=== PATIENT | female | born 1950 | race African-American/Black ===

== ENCOUNTER → 2017-05-23 | Outpatient (CLI) | payer MEDICARE, MEDICAID ==
[~2017-05-23] MED LIST: ACET-2178 PO; ALBU2.5V13 NEB; AMLO2.5T45 PO; ASPI-1159 PO; ATOR40TA70 PO; DOCU-150 PO; FAMO20TA8 PO; FERR-63 PO; GUAI-735 PO; LOV40 SQ; METO50TA5 PO; RANO10003 PO
== END | disposition home or self-care (01) ==
LOC: MRI 09:41
PROVIDERS: ATTEND Internal Medicine Critical Care Medicine
DX: M17.11 Unilateral primary osteoarthritis, right knee (principal); M25.461 Effusion, right knee; M23.241 Derangement of anterior horn of lateral meniscus due to old tear or injury, right knee; M22.41 Chondromalacia patellae, right knee; R60.0 Localized edema
CPT/HCPCS: 73721

== ENCOUNTER 2018-06-23 13:11 | Inpatient (IN) | payer MEDICARE, MEDICAID ==
[~2018-06-23] VITALS: Ht 139.7 cm; Wt 111.7 kg
[~2018-06-23 13:11] MED LIST changes: +METO-539 PO; -METO50TA5 PO
[2018-06-23 19:04] LABS: BASOPHILS % 0.7 % (0.0-2.0); EOSINOPHILS % 2.9 % (0.0-5.0); HEMATOCRIT. 30.5 % (36.0-48.0); HEMOGLOBIN. 9.6 g/dL (12.0-16.0); LYMPHOCYTES % 22.1 % (20.0-50.0); MEAN CORPUSCULAR HEMOGLOBIN 27.2 pg (28.0-32.0); MEAN PLATELET VOLUME 9.4 fl (7.4-10.4); MONOCYTES % 7.7 % (2.0-8.0); NEUTROPHILS % 66.6 % (40.0-76.0); PLATELET 99 x1000/uL (130-400); RED BLOOD CELL COUNT 3.54 mill/uL (4.2-5.4); RED CELL DISTRIBUTION WIDTH 16.6 % (11.6-14.6)
[2018-06-23 19:11] LABS: CHLORIDE 104 mEq/L (98-107)
[2018-06-23 20:40] LABS: CLARITY URINE CLEAR (CLEAR); COLOR URINE YELLOW (YELLOW); KETONES URINE TRACE (NEGATIVE); LEUKOCYTE ESTERASE URINE NEGATIVE (NEGATIVE); NITRITE URINE NEGATIVE (NEGATIVE); OCCULT BLOOD URINE NEGATIVE (NEGATIVE); PH URINE 5.5 (4.5-8.0); PROTEIN URINE NEGATIVE (NEGATIVE); SPECIFIC GRAVITY URINE 1.031 (1.005-1.030); UROBILINOGEN URINE 0.2 E.U./dL (0.2-1.0)
[2018-06-23] MEDS ORDERED: ASPIRIN 81MG TABLET PO ONE (20:45)
[2018-06-23 20:52] LABS: *AMPHETAMINES SCREEN URINE NEGATIVE (NEGATIVE); *BARBITURATES SCREEN URINE NEGATIVE (NEGATIVE); *BENZODIAZEPINES SCREEN URINE NEGATIVE (NEGATIVE)
[2018-06-23 20:53] LABS: *COCAINE SCREEN URINE NEGATIVE (NEGATIVE); CANNABINOID URINE SCREEN NEGATIVE (NEGATIVE); METHADONE URINE SCREEN NEGATIVE (NEGATIVE); OPIATES URINE SCREEN NEGATIVE (NEGATIVE); PHENCYCLIDINE URINE SCREEN NEGATIVE (NEGATIVE)
[2018-06-23 23:30] VITALS: BP 134/104
[2018-06-23 23:38] VITALS: BP 134/104
[2018-06-24] VITALS (12 sets, daily range): BP systolic 106–160; BP diastolic 33–85
[2018-06-24] MEDS ORDERED: ALBUTEROL (0.083%) 2.5MG/3ML NEB ONE (00:21)
[2018-06-24] MEDS ORDERED: ENOXAPARIN 120MG/0.8ML SYR SUBCUT SCH (01:00)
[2018-06-24] MEDS ORDERED: ONDANSETRON HCL 4MG/2ML INJ IV PRN (02:45)
[2018-06-24] MEDS ORDERED: DIPHENHYDRAMINE 50MG/ML VIAL IV PRN (02:45)
[2018-06-24] MEDS ORDERED: DOCUSATE SODIUM 100MG CAPSULE PO PRN (02:45)
[2018-06-24] MEDS ORDERED: CLONIDINE 0.1MG TABLET PO PRN (02:45)
[2018-06-24] MEDS ORDERED: NA PHOS,M-B/NA PHOS,DI-BA ENEMA 118ML PR PRN (02:45)
[2018-06-24] MEDS ORDERED: IPRATROPIUM/ALBUTEROL 0.5-3(2.5)MG/3ML NEB INH PRN (02:45)
[2018-06-24] MEDS ORDERED: ACETAMINOPHEN 650MG/20.3ML UDC GT PRN (02:45)
[2018-06-24] MEDS ORDERED: HYDROCODONE/ACETAMINOPHEN 5/325MG TABLET PO PRN (02:45)
[2018-06-24] MEDS ORDERED: ACETAMINOPHEN 325MG TABLET PO PRN ×2 (02:45)
[2018-06-24] MEDS ORDERED: MAGNESIUM/ALUMINUM HYDROXIDE/SIMETHICONE 30ML UDC PO PRN (02:45)
[2018-06-24] MEDS ORDERED: ACETAMINOPHEN 650MG SUPP PR PRN (02:45)
[2018-06-24] MEDS ORDERED: GUAIFENESIN 200MG/10ML SUGAR FREE UDC PO PRN (02:45)
[2018-06-24] MEDS ORDERED: ALBUTEROL (0.083%) 2.5MG/3ML NEB HHN SCH (04:00)
[2018-06-24] MEDS: SODIUM CHLORIDE 0.9% INJ 3ML FLUSH IVF SCH ×3 (06:00→21:36)
[2018-06-24] MEDS: ENOXAPARIN 40MG/0.4ML SYR SUBCUT SCH ×2 (08:35→21:35)
[2018-06-24 11:39] LABS: EOSINOPHILS % 3.2 % (0.0-5.0); HEMATOCRIT. 30.8 % (36.0-48.0); HEMOGLOBIN. 9.7 g/dL (12.0-16.0); LYMPHOCYTES % 21.3 % (20.0-50.0); MEAN CORPUSCULAR HEMOGLOBIN 27.5 pg (28.0-32.0); MEAN CORPUSCULAR VOLUME 87.3 fL (81.0-99.0); MEAN PLATELET VOLUME 9.7 fl (7.4-10.4); MONOCYTES % 8.6 % (2.0-8.0); NEUTROPHILS % 65.9 % (40.0-76.0); PLATELET 97 x1000/uL (130-400); RED BLOOD CELL COUNT 3.53 mill/uL (4.2-5.4); RED CELL DISTRIBUTION WIDTH 16.5 % (11.6-14.6)
[2018-06-24 12:43] LABS: CREATINE KINASE MB FRACTION 3.7 ng/mL (0.5-3.6)
[2018-06-24 12:44] LABS: CHLORIDE 104 mEq/L (98-107)
[2018-06-24] MEDS: METHYLPREDNISOLONE SOD SUCC 40 MG/ML VIAL IV SCH ×2 (14:03→21:35)
[2018-06-24] MEDS ORDERED: FUROSEMIDE 20MG/2ML VIAL IVP SCH (14:15)
[2018-06-24] MEDS: POTASSIUM CHLORIDE 20MEQ TABLET SR PO SCH (14:19)
[2018-06-24] MEDS: BUDESONIDE 0.5MG/2ML NEB HHN SCH (21:03)
[2018-06-24] MEDS: IPRATROPIUM/ALBUTEROL 0.5-3(2.5)MG/3ML NEB HHN SCH (21:03)
[2018-06-24 23:21] LABS: CREATINE KINASE MB FRACTION 3.2 ng/mL (0.5-3.6)
[2018-06-25] VITALS (12 sets, daily range): BP systolic 123–169; BP diastolic 41–86
[2018-06-25] MEDS: IPRATROPIUM/ALBUTEROL 0.5-3(2.5)MG/3ML NEB HHN SCH ×6 (00:33→19:57)
[2018-06-25] MEDS: METHYLPREDNISOLONE SOD SUCC 40 MG/ML VIAL IV SCH ×2 (05:43→13:00)
[2018-06-25] MEDS: SODIUM CHLORIDE 0.9% INJ 3ML FLUSH IVF SCH ×3 (05:43→21:33)
[2018-06-25] MEDS: POTASSIUM CHLORIDE 20MEQ TABLET SR PO SCH (08:04)
[2018-06-25] MEDS: ENOXAPARIN 40MG/0.4ML SYR SUBCUT SCH ×2 (08:05→21:31)
[2018-06-25] MEDS: BUDESONIDE 0.5MG/2ML NEB HHN SCH ×2 (08:26→19:57)
[2018-06-25] MEDS ORDERED: FUROSEMIDE 20MG/2ML VIAL IVP SCH (09:00)
[2018-06-25] MEDS: ASPIRIN 81MG EC TABLET PO SCH (13:00)
[2018-06-25 15:05] LABS: BASOPHILS % 0.4 % (0.0-2.0); EOSINOPHILS % 0.1 % (0.0-5.0); HEMATOCRIT. 33.1 % (36.0-48.0); HEMOGLOBIN. 10.4 g/dL (12.0-16.0); LYMPHOCYTES % 12.1 % (20.0-50.0); MEAN CORPUSCULAR HEMOGLOBIN 27.6 pg (28.0-32.0); MEAN CORPUSCULAR VOLUME 87.4 fL (81.0-99.0); MEAN PLATELET VOLUME 9.7 fl (7.4-10.4); MONOCYTES % 7.4 % (2.0-8.0); PLATELET 113 x1000/uL (130-400); RED BLOOD CELL COUNT 3.79 mill/uL (4.2-5.4); RED CELL DISTRIBUTION WIDTH 16.2 % (11.6-14.6)
[2018-06-25 15:07] LABS: CHLORIDE 102 mEq/L (98-107)
[2018-06-25 15:15] LABS: HDL CHOLESTEROL 59 mg/dL (40-59)
[2018-06-25 15:19] LABS: CREATINE KINASE MB FRACTION 3.1 ng/mL (0.5-3.6)
[2018-06-25 15:32] LABS: LDL CHOLESTEROL 304 mg/dL (5-100)
[2018-06-25] MEDS: PREDNISONE 20MG TABLET PO SCH (18:23)
[2018-06-25] MEDS: AMLODIPINE 2.5MG TABLET PO SCH (21:32)
[2018-06-25] MEDS: RANOLAZINE 500 MG TAB.SR.12H PO SCH (21:32)
[2018-06-25] MEDS: ATORVASTATIN CALCIUM 40MG TABLET PO SCH (21:32)
[2018-06-25] MEDS: METOPROLOL TARTRATE 25MG TABLET PO SCH (21:33)
[2018-06-26] VITALS (12 sets, daily range): BP systolic 115–144; BP diastolic 48–76
[2018-06-26] MEDS: IPRATROPIUM/ALBUTEROL 0.5-3(2.5)MG/3ML NEB HHN SCH ×6 (04:30→21:22)
[2018-06-26] MEDS: SODIUM CHLORIDE 0.9% INJ 3ML FLUSH IVF SCH ×3 (06:00→22:00)
[2018-06-26 07:18] LABS: BASOPHILS % 0.1 % (0.0-2.0); HEMATOCRIT. 30.6 % (36.0-48.0); HEMOGLOBIN. 9.8 g/dL (12.0-16.0); LYMPHOCYTES % 12.8 % (20.0-50.0); MEAN CORPUSCULAR HEMOGLOBIN 27.6 pg (28.0-32.0); MEAN PLATELET VOLUME 9.8 fl (7.4-10.4); MONOCYTES % 11.8 % (2.0-8.0); NEUTROPHILS % 75.3 % (40.0-76.0); PLATELET 107 x1000/uL (130-400); RED BLOOD CELL COUNT 3.55 mill/uL (4.2-5.4); RED CELL DISTRIBUTION WIDTH 15.7 % (11.6-14.6)
[2018-06-26 07:41] LABS: CHLORIDE 101 mEq/L (98-107)
[2018-06-26] MEDS: PREDNISONE 20MG TABLET PO SCH ×2 (08:23→17:00)
[2018-06-26] MEDS: RANOLAZINE 500 MG TAB.SR.12H PO SCH ×2 (08:24→21:14)
[2018-06-26] MEDS: POTASSIUM CHLORIDE 20MEQ TABLET SR PO SCH ×2 (08:24→09:00)
[2018-06-26] MEDS: ASPIRIN 81MG EC TABLET PO SCH (08:25)
[2018-06-26] MEDS: METOPROLOL TARTRATE 25MG TABLET PO SCH ×2 (08:32→21:15)
[2018-06-26] MEDS: AMLODIPINE 2.5MG TABLET PO SCH (08:32)
[2018-06-26] MEDS: ENOXAPARIN 40MG/0.4ML SYR SUBCUT SCH ×2 (08:33→21:17)
[2018-06-26] MEDS: BUDESONIDE 0.5MG/2ML NEB HHN SCH (08:57)
[2018-06-26] MEDS ORDERED: FUROSEMIDE 40MG/4ML VIAL IVP SCH (09:00)
[2018-06-26] MEDS ORDERED: FURO-151 MT (10:25)
[2018-06-26] MEDS ORDERED: P50 PO (10:25)
[2018-06-26] MEDS ORDERED: LEVOFLOXACIN 500MG TABLET PO NR (10:30)
[2018-06-26] MEDS ORDERED: FUROSEMIDE 40MG TABLET PO NR (10:30)
[2018-06-26] MEDS ORDERED: LEVO500T2 PO (10:33)
[2018-06-26] MEDS ORDERED: SODIUM POLYSTYRENE SULFONATE 15 G/60 ML BOT PO NR (10:45)
[2018-06-26] MEDS ORDERED: BUDESONIDE 0.5MG/2ML NEB HHN SCH (14:00)
[2018-06-26 15:53] LABS: BG BASE EXCESS 0.2 mmol/L (-2.0-2.0); BG CARBOXYHEMOGLOBIN 0.7 % (0.5-1.5); BG DEOXYHEMOGLOBIN 4.2 % (0.0-5.0); BG FRACTION INSPIRED OXYGEN 21; BG HCO3 ACT 24.7 mmol/L (22.0-26.0); BG METHEMOGLOBIN 0.2 % (0.0-1.5); BG OXYGEN SATURATION 95.8 % (92.0-98.5); BG OXYHEMOGLOBIN 94.9 % (94.0-97.0); BG PCO2 39.5 mmHg (35.0-45.0); BG PH 7.414 (7.350-7.450); BG PO2 82.6 mmHg (75.0-100.0); BG SAMPLE SITE RIGHT RADIAL; BG TOTAL HEMOGLOBIN 11.4 g/dL (12.0-18.0); BG VENT MODE ROOM AIR
[2018-06-26 18:21] LABS: INR 1.1; PROTHROMBIN TIME 10.7 sec (9.1-11.1)
[2018-06-26] MEDS: ATORVASTATIN CALCIUM 40MG TABLET PO SCH (21:14)
[2018-06-26] MEDS: FUROSEMIDE 20MG TABLET PO SCH (21:16)
[2018-06-26] MEDS: AMLODIPINE 5MG TABLET PO SCH (21:16)
[2018-06-27] VITALS (14 sets, daily range): BP systolic 116–159; BP diastolic 49–88
[2018-06-27] MEDS: IPRATROPIUM/ALBUTEROL 0.5-3(2.5)MG/3ML NEB HHN SCH ×5 (01:02→16:40)
[2018-06-27] MEDS: SODIUM CHLORIDE 0.9% INJ 3ML FLUSH IVF SCH ×2 (06:00→14:00)
[2018-06-27 07:45] LABS: BASOPHILS % 0.2 % (0.0-2.0); HEMATOCRIT. 29.7 % (36.0-48.0); HEMOGLOBIN. 9.6 g/dL (12.0-16.0); LYMPHOCYTES % 13.5 % (20.0-50.0); MEAN CORPUSCULAR VOLUME 86.2 fL (81.0-99.0); MEAN PLATELET VOLUME 9.9 fl (7.4-10.4); MONOCYTES % 10.6 % (2.0-8.0); NEUTROPHILS % 75.7 % (40.0-76.0); PLATELET 113 x1000/uL (130-400); RED BLOOD CELL COUNT 3.45 mill/uL (4.2-5.4); RED CELL DISTRIBUTION WIDTH 15.9 % (11.6-14.6)
[2018-06-27] MEDS: RANOLAZINE 500 MG TAB.SR.12H PO SCH (08:35)
[2018-06-27] MEDS: AMLODIPINE 5MG TABLET PO SCH (08:35)
[2018-06-27] MEDS: ASPIRIN 81MG EC TABLET PO SCH (08:35)
[2018-06-27] MEDS: FUROSEMIDE 20MG TABLET PO SCH (08:35)
[2018-06-27] MEDS: PREDNISONE 20MG TABLET PO SCH ×2 (08:35→17:07)
[2018-06-27] MEDS: ENOXAPARIN 40MG/0.4ML SYR SUBCUT SCH (08:36)
[2018-06-27] MEDS: METOPROLOL TARTRATE 25MG TABLET PO SCH (08:36)
[2018-06-27 09:15] LABS: CHLORIDE 101 mEq/L (98-107)
[2018-06-27] MEDS ORDERED: ENOXAPARIN 30MG/0.3ML SYR SUBCUT SCH (21:00)
== END 2018-06-27 20:45 | DRG 291 ==
LOC: ER 17:34 → EDBEDREQ 19:07 → 3WST 20:28 → EDBEDREQTM 20:31 → EDBEDREQ 20:33 → ENRESERV 21:37
PROVIDERS: ADMIT Family Medicine; ATTEND Family Medicine
PROC: 06H033Z Insertion of Infusion Device into Inferior Vena Cava, Percutaneous Approach (ICD-10-PCS; principal; 2018-06-24)
PROC: B549ZZA Ultrasonography of Inferior Vena Cava, Guidance (ICD-10-PCS; 2018-06-24)
DX: I11.0 Hypertensive heart disease with heart failure (principal); J96.20 Acute and chronic respiratory failure, unspecified whether with hypoxia or hypercapnia; Z68.44 Body mass index [BMI] 60.0-69.9, adult; I69.954 Hemiplegia and hemiparesis following unspecified cerebrovascular disease affecting left non-dominant side; I50.23 Acute on chronic systolic (congestive) heart failure; K21.9 Gastro-esophageal reflux disease without esophagitis; D63.8 Anemia in other chronic diseases classified elsewhere; E66.9 Obesity, unspecified; Z95.1 Presence of aortocoronary bypass graft; Z95.2 Presence of prosthetic heart valve
CPT/HCPCS: 36415; 36569; 36600; 71045; 76937; 80048; 80061; 80305; 82375; 82550; 82553; 82805; 83735; 83880; 84132; 84484; 87077; 87186; 93005; 93306; 94640; 97116; 97162; 99285; C1725; C1893; J1650; J1940; J2920; J7512; J7611; J7620; J7626

== ENCOUNTER 2018-09-28 21:29 | Inpatient (IN) | payer MEDICARE, MEDICAID ==
[~2018-09-28] VITALS: Ht 152.4 cm; Wt 109.3 kg
[~2018-09-28 21:29] MED LIST changes: -FERR-63 PO; +FURO-151 MT; -GUAI-735 PO; +LEVO500T2 PO; -LOV40 SQ; +P50 PO
[2018-09-28] MEDS ORDERED: ALBUTEROL (0.083%) 2.5MG/3ML NEB HHN STA (22:12)
[2018-09-28] MEDS ORDERED: MORPHINE SULFATE 4 MG/ML CPJ (NOT FOR IM USE) IV ONE (23:30)
[2018-09-28 23:49] LABS: BASOPHILS % 0.5 % (0.0-2.0); EOSINOPHILS % 2.6 % (0.0-5.0); HEMATOCRIT. 25.8 % (36.0-48.0); HEMOGLOBIN. 8.3 g/dL (12.0-16.0); LYMPHOCYTES % 16.5 % (20.0-50.0); MEAN CORPUSCULAR HEMOGLOBIN 29.7 pg (28.0-32.0); MEAN CORPUSCULAR VOLUME 92.8 fL (81.0-99.0); MEAN PLATELET VOLUME 9.4 fl (7.4-10.4); NEUTROPHILS % 74.4 % (40.0-76.0); PLATELET 137 x1000/uL (130-400); RED BLOOD CELL COUNT 2.78 mill/uL (4.2-5.4)
[2018-09-28 23:54] LABS: CHLORIDE 99 mEq/L (98-107)
[2018-09-29] VITALS (11 sets, daily range): BP systolic 102–132; BP diastolic 58–77
[2018-09-29 00:04] LABS: PROTHROMBIN TIME 10.5 sec (9.1-11.1)
[2018-09-29] MEDS ORDERED: NITROGLYCERIN 0.4MG TABLET SL SL ONE (01:00)
[2018-09-29] MEDS ORDERED: ASPIRIN 81MG TABLET PO ONE (01:00)
[2018-09-29 01:54] LABS: CLARITY URINE TURBID (CLEAR); COLOR URINE DARK YELLOW (YELLOW); KETONES URINE TRACE (NEGATIVE); LEUKOCYTE ESTERASE URINE 1+ (NEGATIVE); NITRITE URINE NEGATIVE (NEGATIVE); OCCULT BLOOD URINE NEGATIVE (NEGATIVE); PH URINE 5.5 (4.5-8.0); PROTEIN URINE TRACE (NEGATIVE); SPECIFIC GRAVITY URINE 1.024 (1.005-1.030)
[2018-09-29] MEDS ORDERED: FUROSEMIDE 40MG/4ML VIAL IVP ONE (02:30)
[2018-09-29] MEDS ORDERED: ACETAMINOPHEN 325MG TABLET PO PRN (08:45)
[2018-09-29] MEDS ORDERED: PANTOPRAZOLE 40MG DR TABLET PO NR (08:45)
[2018-09-29] MEDS ORDERED: CLONIDINE 0.1MG TABLET PO PRN (08:45)
[2018-09-29] MEDS ORDERED: ONDANSETRON HCL 4MG/2ML INJ IV PRN (08:45)
[2018-09-29] MEDS ORDERED: METOPROLOL TARTRATE 50MG TABLET PO SCH (09:00)
[2018-09-29] MEDS: AMLODIPINE 2.5MG TABLET PO SCH (09:28)
[2018-09-29] MEDS ORDERED: FUROSEMIDE 40MG/4ML VIAL IVP NR (10:00)
[2018-09-29] MEDS ORDERED: METHYLPREDNISOLONE SOD SUCC 125 MG/2 ML VIAL IV NR (10:00)
[2018-09-29] MEDS: ENOXAPARIN 40MG/0.4ML SYR SUBCUT SCH (10:05)
[2018-09-29] MEDS: POTASSIUM CHLORIDE 10MEQ TABLET SR PO SCH (10:24)
[2018-09-29] MEDS: LEVOFLOXACIN 500MG PREMIX 100 ML IV SCH (10:25)
[2018-09-29 11:29] LABS: BASOPHILS % 0.5 % (0.0-2.0); EOSINOPHILS % 4.6 % (0.0-5.0); HEMATOCRIT. 23.5 % (36.0-48.0); HEMOGLOBIN. 7.5 g/dL (12.0-16.0); LYMPHOCYTES % 17.3 % (20.0-50.0); MEAN CORPUSCULAR HEMOGLOBIN 29.4 pg (28.0-32.0); MEAN CORPUSCULAR VOLUME 92.1 fL (81.0-99.0); MEAN PLATELET VOLUME 9.2 fl (7.4-10.4); MONOCYTES % 8.5 % (2.0-8.0); NEUTROPHILS % 69.1 % (40.0-76.0); PLATELET 112 x1000/uL (130-400); RED BLOOD CELL COUNT 2.55 mill/uL (4.2-5.4); RED CELL DISTRIBUTION WIDTH 14.8 % (11.6-14.6)
[2018-09-29 11:32] LABS: CHLORIDE 101 mEq/L (98-107)
[2018-09-29 11:46] LABS: TOTAL IRON BINDING CAPACITY 168 ug/dL (250-450)
[2018-09-29] MEDS ORDERED: POTASSIUM CHLORIDE 20MEQ TABLET SR PO NR (12:30)
[2018-09-29] MEDS: IPRATROPIUM/ALBUTEROL 0.5-3(2.5)MG/3ML NEB HHN SCH ×3 (13:31→20:35)
[2018-09-29 14:03] LABS: *AMPHETAMINES SCREEN URINE NEGATIVE (NEGATIVE); *BARBITURATES SCREEN URINE NEGATIVE (NEGATIVE); *BENZODIAZEPINES SCREEN URINE NEGATIVE (NEGATIVE); *COCAINE SCREEN URINE NEGATIVE (NEGATIVE); METHADONE URINE SCREEN NEGATIVE (NEGATIVE); OPIATES URINE SCREEN PRESUMTIVE POSITIVE (NEGATIVE)
[2018-09-29 14:04] LABS: CANNABINOID URINE SCREEN NEGATIVE (NEGATIVE); PHENCYCLIDINE URINE SCREEN NEGATIVE (NEGATIVE)
[2018-09-29] MEDS: METHYLPREDNISOLONE SOD SUCC 40 MG/ML VIAL IV SCH (17:31)
[2018-09-29] MEDS: MONTELUKAST SODIUM 10MG TABLET PO SCH (17:32)
[2018-09-29] MEDS: ATORVASTATIN CALCIUM 40MG TABLET PO SCH (17:32)
[2018-09-30] VITALS (16 sets, daily range): BP systolic 90–133; BP diastolic 46–96
[2018-09-30] MEDS: IPRATROPIUM/ALBUTEROL 0.5-3(2.5)MG/3ML NEB HHN SCH ×5 (01:54→18:00)
[2018-09-30] MEDS: METHYLPREDNISOLONE SOD SUCC 40 MG/ML VIAL IV SCH ×2 (02:06→17:24)
[2018-09-30 05:58] LABS: BASOPHILS % 0.5 % (0.0-2.0); HEMATOCRIT. 23.9 % (36.0-48.0); HEMOGLOBIN. 7.5 g/dL (12.0-16.0); LYMPHOCYTES % 8.8 % (20.0-50.0); MEAN CORPUSCULAR HEMOGLOBIN 29.3 pg (28.0-32.0); MEAN CORPUSCULAR VOLUME 93.2 fL (81.0-99.0); MEAN PLATELET VOLUME 9.7 fl (7.4-10.4); MONOCYTES % 2.8 % (2.0-8.0); NEUTROPHILS % 87.9 % (40.0-76.0); PLATELET 132 x1000/uL (130-400); RED BLOOD CELL COUNT 2.57 mill/uL (4.2-5.4); RED CELL DISTRIBUTION WIDTH 15.1 % (11.6-14.6)
[2018-09-30] MEDS: PANTOPRAZOLE 40MG DR TABLET PO SCH (06:07)
[2018-09-30 06:12] LABS: CHLORIDE 102 mEq/L (98-107)
[2018-09-30] MEDS: ENOXAPARIN 40MG/0.4ML SYR SUBCUT SCH (09:00)
[2018-09-30] MEDS: POTASSIUM CHLORIDE 10MEQ TABLET SR PO SCH (09:02)
[2018-09-30] MEDS: AMLODIPINE 2.5MG TABLET PO SCH (09:02)
[2018-09-30] MEDS: FUROSEMIDE 40MG/4ML VIAL IVP SCH (09:02)
[2018-09-30] MEDS: NITROGLYCERIN 0.4MG TABLET SL SL PRN ×3 (09:04→22:40)
[2018-09-30] MEDS ORDERED: CLOPIDOGREL 75MG TABLET PO NR (09:45)
[2018-09-30 09:48] LABS: BG BASE EXCESS 1.3 mmol/L (-2.0-2.0); BG CARBOXYHEMOGLOBIN 0.7 % (0.5-1.5); BG FRACTION INSPIRED OXYGEN 21; BG HCO3 ACT 24.9 mmol/L (22.0-26.0); BG METHEMOGLOBIN 0.6 % (0.0-1.5); BG OXYHEMOGLOBIN 96.7 % (94.0-97.0); BG PCO2 34.4 mmHg (35.0-45.0); BG PH 7.477 (7.350-7.450); BG PO2 105.3 mmHg (75.0-100.0); BG SAMPLE SITE RIGHT RADIAL; BG TOTAL HEMOGLOBIN 7.2 g/dL (12.0-18.0); BG VENT MODE ROOM AIR
[2018-09-30] MEDS: LEVOFLOXACIN 500MG PREMIX 100 ML IV SCH (10:32)
[2018-09-30] MEDS: DOCUSATE SODIUM SUGAR FREE 100MG/10ML UDC NG SCH ×2 (10:45→17:24)
[2018-09-30] MEDS: ATORVASTATIN CALCIUM 40MG TABLET PO SCH (17:24)
[2018-09-30] MEDS: MONTELUKAST SODIUM 10MG TABLET PO SCH (17:24)
[2018-09-30 20:26] LABS: HEMATOCRIT 28.2 % (36.0-48.0); HEMOGLOBIN 8.8 g/dL (12.0-16.0)
[2018-10-01] VITALS (12 sets, daily range): BP systolic 102–152; BP diastolic 46–87
[2018-10-01] MEDS: IPRATROPIUM/ALBUTEROL 0.5-3(2.5)MG/3ML NEB HHN SCH ×6 (00:55→20:51)
[2018-10-01] MEDS: NITROGLYCERIN 0.4MG TABLET SL SL PRN ×2 (02:42→02:46)
[2018-10-01] MEDS: METHYLPREDNISOLONE SOD SUCC 40 MG/ML VIAL IV SCH (06:40)
[2018-10-01] MEDS: PANTOPRAZOLE 40MG DR TABLET PO SCH (06:40)
[2018-10-01 07:46] LABS: HEMATOCRIT. 29.1 % (36.0-48.0); MEAN CORPUSCULAR HEMOGLOBIN 29.5 pg (28.0-32.0); MEAN CORPUSCULAR VOLUME 95.1 fL (81.0-99.0); MEAN PLATELET VOLUME 10.2 fl (7.4-10.4); PLATELET 132 x1000/uL (130-400); RED BLOOD CELL COUNT 3.06 mill/uL (4.2-5.4); RED CELL DISTRIBUTION WIDTH 15.3 % (11.6-14.6)
[2018-10-01] MEDS: DOCUSATE SODIUM SUGAR FREE 100MG/10ML UDC NG SCH ×3 (09:00→17:45)
[2018-10-01] MEDS: FUROSEMIDE 40MG/4ML VIAL IVP SCH (09:16)
[2018-10-01] MEDS: AMLODIPINE 2.5MG TABLET PO SCH ×2 (09:17→21:35)
[2018-10-01] MEDS: POTASSIUM CHLORIDE 10MEQ TABLET SR PO SCH (09:17)
[2018-10-01] MEDS: ENOXAPARIN 40MG/0.4ML SYR SUBCUT SCH (09:17)
[2018-10-01] MEDS: CLOPIDOGREL 75MG TABLET PO SCH (09:17)
[2018-10-01] MEDS: LEVOFLOXACIN 500MG PREMIX 100 ML IV SCH (09:18)
[2018-10-01 09:51] LABS: NUCLEATED RED BLOOD CELLS 1 /100 WBC; PLATELET ESTIMATE NORMAL
[2018-10-01 11:01] LABS: CHLORIDE 101 mEq/L (98-107)
[2018-10-01] MEDS: ISOSORBIDE MONONITRATE 30MG TABLET SR 24HR PO SCH (12:13)
[2018-10-01] MEDS: ATORVASTATIN CALCIUM 40MG TABLET PO SCH (17:45)
[2018-10-01] MEDS: MONTELUKAST SODIUM 10MG TABLET PO SCH (17:45)
[2018-10-02] VITALS (15 sets, daily range): BP systolic 103–138; BP diastolic 46–87
[2018-10-02] MEDS: IPRATROPIUM/ALBUTEROL 0.5-3(2.5)MG/3ML NEB HHN SCH ×6 (00:38→20:19)
[2018-10-02 06:12] LABS: HEMATOCRIT. 26.7 % (36.0-48.0); HEMOGLOBIN. 8.4 g/dL (12.0-16.0); MEAN CORPUSCULAR HEMOGLOBIN 29.4 pg (28.0-32.0); MEAN CORPUSCULAR VOLUME 93.1 fL (81.0-99.0); MEAN PLATELET VOLUME 9.5 fl (7.4-10.4); PLATELET 157 x1000/uL (130-400); RED BLOOD CELL COUNT 2.87 mill/uL (4.2-5.4); RED CELL DISTRIBUTION WIDTH 15.3 % (11.6-14.6)
[2018-10-02 06:42] LABS: CHLORIDE 102 mEq/L (98-107)
[2018-10-02] MEDS: CLOPIDOGREL 75MG TABLET PO SCH (08:52)
[2018-10-02] MEDS: FUROSEMIDE 40MG/4ML VIAL IVP SCH (08:55)
[2018-10-02] MEDS: POTASSIUM CHLORIDE 10MEQ TABLET SR PO SCH (08:55)
[2018-10-02] MEDS: PANTOPRAZOLE 40MG DR TABLET PO SCH (08:55)
[2018-10-02] MEDS: DOCUSATE SODIUM SUGAR FREE 100MG/10ML UDC NG SCH (09:00)
[2018-10-02] MEDS: ISOSORBIDE MONONITRATE 30MG TABLET SR 24HR PO SCH (09:00)
[2018-10-02] MEDS: AMLODIPINE 2.5MG TABLET PO SCH ×2 (09:00→21:53)
[2018-10-02] MEDS ORDERED: PREDNISONE 20MG TABLET PO SCH (09:00)
[2018-10-02] MEDS: LEVOFLOXACIN 500MG PREMIX 100 ML IV SCH (09:10)
[2018-10-02] MEDS: ENOXAPARIN 40MG/0.4ML SYR SUBCUT SCH (12:11)
[2018-10-02 18:13] LABS: NUCLEATED RED BLOOD CELLS 1 /100 WBC; PLATELET ESTIMATE NORMAL
[2018-10-02] MEDS: MONTELUKAST SODIUM 10MG TABLET PO SCH (18:13)
[2018-10-02] MEDS: RANOLAZINE 500 MG TAB.SR.12H PO SCH (21:50)
[2018-10-02] MEDS: ATORVASTATIN CALCIUM 40MG TABLET PO SCH (21:50)
[2018-10-03] VITALS (12 sets, daily range): BP systolic 93–180; BP diastolic 44–150
[2018-10-03] MEDS: IPRATROPIUM/ALBUTEROL 0.5-3(2.5)MG/3ML NEB HHN SCH ×6 (00:27→20:37)
[2018-10-03 07:44] LABS: CHLORIDE 101 mEq/L (98-107)
[2018-10-03 08:10] LABS: HEMOGLOBIN. 9.4 g/dL (12.0-16.0); MEAN CORPUSCULAR HEMOGLOBIN 28.9 pg (28.0-32.0); MEAN CORPUSCULAR VOLUME 93.9 fL (81.0-99.0); MEAN PLATELET VOLUME 9.5 fl (7.4-10.4); PLATELET 170 x1000/uL (130-400); RED BLOOD CELL COUNT 3.27 mill/uL (4.2-5.4); RED CELL DISTRIBUTION WIDTH 15.6 % (11.6-14.6)
[2018-10-03 08:15] LABS: HEMATOCRIT. 30.7 % (36.0-48.0)
[2018-10-03] MEDS: DOCUSATE SODIUM SUGAR FREE 100MG/10ML UDC NG SCH ×2 (09:00→17:00)
[2018-10-03] MEDS: FUROSEMIDE 40MG/4ML VIAL IVP SCH (09:11)
[2018-10-03] MEDS: RANOLAZINE 500 MG TAB.SR.12H PO SCH ×2 (09:16→21:03)
[2018-10-03] MEDS: CLOPIDOGREL 75MG TABLET PO SCH (09:17)
[2018-10-03] MEDS: POTASSIUM CHLORIDE 10MEQ TABLET SR PO SCH (09:18)
[2018-10-03] MEDS: AMLODIPINE 2.5MG TABLET PO SCH (09:20)
[2018-10-03] MEDS: FAMOTIDINE 20MG TABLET PO SCH (09:21)
[2018-10-03] MEDS: ENOXAPARIN 40MG/0.4ML SYR SUBCUT SCH (09:24)
[2018-10-03] MEDS: LEVOFLOXACIN 500MG TABLET PO SCH (10:23)
[2018-10-03 11:07] LABS: PLATELET ESTIMATE NORMAL
[2018-10-03] MEDS: MONTELUKAST SODIUM 10MG TABLET PO SCH (16:51)
[2018-10-03] MEDS: ATORVASTATIN CALCIUM 40MG TABLET PO SCH (16:51)
[2018-10-04] VITALS (8 sets, daily range): BP systolic 106–122; BP diastolic 49–80
[2018-10-04] MEDS: IPRATROPIUM/ALBUTEROL 0.5-3(2.5)MG/3ML NEB HHN SCH ×5 (00:35→15:35)
[2018-10-04 06:41] LABS: BASOPHILS % 0.7 % (0.0-2.0); EOSINOPHILS % 3.2 % (0.0-5.0); HEMATOCRIT. 30.7 % (36.0-48.0); HEMOGLOBIN. 9.8 g/dL (12.0-16.0); LYMPHOCYTES % 19.7 % (20.0-50.0); MEAN CORPUSCULAR HEMOGLOBIN 29.5 pg (28.0-32.0); MEAN CORPUSCULAR VOLUME 92.7 fL (81.0-99.0); NEUTROPHILS % 66.4 % (40.0-76.0); PLATELET 161 x1000/uL (130-400); RED BLOOD CELL COUNT 3.31 mill/uL (4.2-5.4); RED CELL DISTRIBUTION WIDTH 15.3 % (11.6-14.6)
[2018-10-04 06:43] LABS: CHLORIDE 101 mEq/L (98-107)
[2018-10-04] MEDS: DOCUSATE SODIUM SUGAR FREE 100MG/10ML UDC NG SCH ×2 (09:00→09:17)
[2018-10-04] MEDS ORDERED: FUROSEMIDE 20MG/2ML VIAL IVP SCH (09:00)
[2018-10-04] MEDS: POTASSIUM CHLORIDE 10MEQ TABLET SR PO SCH (09:16)
[2018-10-04] MEDS: CLOPIDOGREL 75MG TABLET PO SCH (09:16)
[2018-10-04] MEDS: FAMOTIDINE 20MG TABLET PO SCH (09:17)
[2018-10-04] MEDS: RANOLAZINE 500 MG TAB.SR.12H PO SCH (09:17)
[2018-10-04] MEDS: ENOXAPARIN 40MG/0.4ML SYR SUBCUT SCH (09:18)
[2018-10-04] MEDS: LEVOFLOXACIN 500MG TABLET PO SCH (11:28)
[2018-10-04] MEDS ORDERED: DOCUSATE SODIUM 250MG CAPSULE PO SCH (17:00)
[2018-10-04] MEDS ORDERED: DOCUSATE SODIUM SUGAR FREE 100MG/10ML UDC PO SCH (17:00)
[2018-10-04] MEDS ORDERED: ENOXAPARIN 30MG/0.3ML SYR SUBCUT SCH (21:00)
[2018-10-04] MEDS ORDERED: FAMOTIDINE 20MG TABLET PO SCH (21:00)
== END 2018-10-04 18:12 | DRG 280 ==
LOC: ER 21:29 → 5EST 09-29 02:21 → EDBEDREQDT 09-29 02:29 → EDBEDREQTM 09-29 02:29 → EDBEDREQSVC 09-29 02:29 → EDBEDREQ 09-29 02:29 → ENRESERV 09-29 05:22 → 6WST 10-04 10:58
PROVIDERS: ADMIT Internal Medicine Geriatric Medicine; ATTEND Internal Medicine Geriatric Medicine
PROC: 30233N1 Transfusion of Nonautologous Red Blood Cells into Peripheral Vein, Percutaneous Approach (ICD-10-PCS; 2018-09-30)
PROC: 05H633Z Insertion of Infusion Device into Left Subclavian Vein, Percutaneous Approach (ICD-10-PCS; principal; 2018-10-02)
PROC: B547ZZA Ultrasonography of Left Subclavian Vein, Guidance (ICD-10-PCS; 2018-10-02)
DX: I21.4 Non-ST elevation (NSTEMI) myocardial infarction (principal); J96.00 Acute respiratory failure, unspecified whether with hypoxia or hypercapnia; I50.43 Acute on chronic combined systolic (congestive) and diastolic (congestive) heart failure; E87.2 Acidosis; I42.9 Cardiomyopathy, unspecified; I69.354 Hemiplegia and hemiparesis following cerebral infarction affecting left non-dominant side; Z68.42 Body mass index [BMI] 45.0-49.9, adult; E44.0 Moderate protein-calorie malnutrition; J44.1 Chronic obstructive pulmonary disease with (acute) exacerbation; I11.0 Hypertensive heart disease with heart failure; D64.9 Anemia, unspecified; E66.01 Morbid (severe) obesity due to excess calories; D69.6 Thrombocytopenia, unspecified; G47.33 Obstructive sleep apnea (adult) (pediatric); F41.9 Anxiety disorder, unspecified; E78.5 Hyperlipidemia, unspecified; I08.0 Rheumatic disorders of both mitral and aortic valves; I25.110 Atherosclerotic heart disease of native coronary artery with unstable angina pectoris; I27.29 Other secondary pulmonary hypertension; M15.4 Erosive (osteo)arthritis; K21.9 Gastro-esophageal reflux disease without esophagitis; Z82.5 Family history of asthma and other chronic lower respiratory diseases; Z82.49 Family history of ischemic heart disease and other diseases of the circulatory system; I25.2 Old myocardial infarction; Z95.5 Presence of coronary angioplasty implant and graft; Z95.3 Presence of xenogenic heart valve; Z95.1 Presence of aortocoronary bypass graft; Z83.3 Family history of diabetes mellitus; Z88.9 Allergy status to unspecified drugs, medicaments and biological substances; Z90.49 Acquired absence of other specified parts of digestive tract
CPT/HCPCS: 36415; 36569; 36600; 71045; 76937; 80048; 80305; 82270; 82375; 82533; 82728; 82805; 83036; 83540; 83550; 83605; 83735; 83880; 84145; 84443; 84484; 85014; 85018; 86850; 86900; 86920; 93005; 93306; 93970; 94640; 96374; 97116; 97162; 97530; 99291; C1725; J1650; J1940; J1956; J2270; J2920; J2930; J7050; J7512; J7611; J7620; P9016